=== PATIENT | male | born 1980 | race Hispanic/Latino ===

== ENCOUNTER 2018-09-19 20:04 | Inpatient (IN) | payer SELFPAY ==
[~2018-09-19 20:04] MED LIST: ISOVUE-370 76%-LOCM 1 ML ONE
[2018-09-19] MEDS ORDERED: Morphine 4 MG/ML VIAL ONE ×2 (20:41→21:30)
[2018-09-19] MEDS ORDERED: Ondansetron PF 4 MG/2 ML Vial ONE (20:42)
[2018-09-19 20:46] LABS: #Eosinphils 0.1 thou/uL (0.0-0.7); #Lymphocytes 2.4 thou/uL (1.20-3.40); #Neutrophils 5.6 thou/uL (1.40-6.50); %Basophils 0.5 % (0.0-1.0); %Eosinophils 1.2 % (0.0-10.0); %Lymphocytes 26.6 % (21.0-51.0); %Monocytes 10.4 % (0.0-10.0); %Neutrophils 61.3 % (42.0-75.0); Hemoglobin 13.9 g/dL (14.0-18.0); Mean Corpuscular HGB CONC 33.2 g/dL (32.0-36.0); Mean Corpuscular Hemoglobin 29.8 pg (27.0-31.0); Mean Corpuscular Volume 89.8 fL (78.0-98.0); Mean Platelet Volume 5.8 fL (7.4-10.4); Platelet Count 378 thou/uL (130-400); RBC Distribution Width 12.2 % (11.5-14.5); Red Blood Cell (RBC) Count 4.64 mill/uL (4.70-6.10); White Blood Cell (WBC) Count 9.2 thou/uL (4.8-10.8)
[2018-09-19 21:09] LABS: ALT (SGPT) 9 U/L (8-55); AST (SGOT) 13 U/L (5-34); Albumin 3.9 g/dL (3.5-5.0); Alkaline Phosphatase 62 U/L (40-150); Anion Gap 11 mmol/L (10-20); BUN (Urea Nitrogen) 9 mg/dL (8.9-20.6); Bilirubin, Total 0.5 mg/dL (0.2-1.2); Calc. Creatinine Clearance 0 mL/min (70-130); Calcium 9.5 mg/dL (7.8-10.44); Carbon Dioxide 31 mmol/L (22-29); Chloride 99 mmol/L (98-107); Estimated GFR-MDRD Greater than 90; Globulin 3.9 g/dL (2.4-3.5); Glucose 87 mg/dL (70-105); Lipase 53 U/L (8-78); Potassium 3.7 mmol/L (3.5-5.1); Protein, Total 7.8 g/dL (6.0-8.3); Sodium 137 mmol/L (136-145)
--- NOTE | 2018-09-19 21:11 | CT ---
CT of abdomen and pelvis: 09/19/2018 COMPARISON: None HISTORY: Abdominal pain, prior surgery TECHNIQUE: Axial CT imaging at 5 mm intervals from lung bases through pubic symphysis with IV contras t. Coronal reformatted imaging obtained. FINDINGS: The imaged lung bases are unremarkable. No free intraperitoneal air or fluid is seen. There are cholecystectomy clips present. There is a small amount of biliary gas within the left lobe of the liver and within the common bile duct, presumably associated with prior sphincterotomy or ERCP. Clinical correlation is essential. No focal liver lesion is identified. The spleen, adrenal gla nds, and kidneys are unremarkable. There is marked wall thickening of the gastric antrum and proximal duodenum with adjacent inflammator y fat stranding. The pancreas demonstrates no discrete abnormality. There is an ill-defined thick walled rim enhancing irregular fluid collection containing foci of gas, best seen on coronal image 50 and axial image 38, measuring approximately 2.8 x 4.1 x 3.2 cm. This fluid collection is intimately associated with the inferior aspect of the pancreatic head anteriorly and the thick walled abnormal distal stomach and proximal duodenum. Findings are most consistent with abscess. There is a questionable clot versus volume averaging associated with the inferior aspect of the left portal vein on axial image 24. Volume averaging is favored. No lymphadenopathy is apparent within the pelvis, the retroperitoneum, or the mesentery. No evidence for bowel obstruction or appendicitis. Review of the osseous structures demonstrates no worrisome findings. IMPRESSION: Findings suggesting abscess formation within the right upper quadrant, inferior to and ab utting a thick-walled gastric antrum and proximal duodenum. Findings are suspicious for perforated peptic ulcer disease. Air within the biliary tree noted. Volume averaging favored over clot within le ft portal vein. Findings called to Dr. Pinedo at 9:05 PM 09/19/2018.
[2018-09-19] MEDS ORDERED: metroNIDAZOLE 500 MG/100 ML BAG ONE (21:37)
[2018-09-19] MEDS ORDERED: MEROPENEM 1 GM/50 ML 1 GM in Premix Bag 1 BAG IVPB SCH (22:00)
[2018-09-19] MEDS ORDERED: Dextrose 5 %-0.45 % NaCl 1,000 ML IV SCH (22:30)
[2018-09-19 23:30] VITALS: BMI 26.6
[2018-09-19] MEDS ORDERED: Ondansetron ODT 4 MG TAB SL PRN (23:52)
[2018-09-19] MEDS ORDERED: Ondansetron PF 4 MG/2 ML Vial IVP PRN (23:52)
[2018-09-20] MEDS: D5 1/2 NS w/20 mEq KCL 1,000 ML IV SCH ×4 (00:07→18:17)
[2018-09-20] MEDS: Morphine 4 MG/ML VIAL SLOW IVP PRN ×3 (00:12→20:19)
[2018-09-20] MEDS ORDERED: metroNIDAZOLE 500 MG in Premix Bag 1 BAG IVPB SCH (06:00)
[2018-09-20] MEDS ORDERED: MEROPENEM 1 GM/50 ML 1 GM in Premix Bag 1 BAG IVPB SCH (06:00)
[2018-09-20] MEDS ORDERED: Acetaminophen 1,000 MG in Premix Bag 1 BAG IVPB PRN (09:55)
--- NOTE | 2018-09-20 10:16 | HP ---
CHIEF COMPLAINT: Epigastric pain. HISTORY OF PRESENT ILLNESS: The patient is a 38-year-old male, who underwent a laparoscopic cholecystectomy in April 16 for acute cholecystitis. Initially, his liver function tests were normal. Postprocedure, his LFTs bumped and bilirubin went up. He underwent an ERCP and they saw small filling defect, underwent sphincterotomy. Post ERCP, he developed pancreatitis. He remained in the hospital until May 01. Since discharge, he has been having persistent epigastric pain. It did not affect his eating. The pain persisted until this past couple of weeks when it has been increasing. He denies fever. He has had some nausea. No vomiting. The pain radiates to his back. He denies black or bloody stools. He denies weight loss, in fact he has gained weight, he went from 157 to 165. No change in bowel habits. PAST MEDICAL HISTORY: Right knee pain, hypertension. PAST SURGICAL HISTORY: Lap sonia and he had a repair of laceration of his right arm. MEDICATIONS: He is on a lisinopril/hydrochlorothiazide 10/12.5 pill daily. FAMILY HISTORY: Noncontributory. PHYSICAL EXAMINATION: VITAL SIGNS: Temperature 98.2, pulse 71, and blood pressure 113/70. GENERAL: He is a well-developed, well-nourished male, in no apparent distress. HEENT: No jaundice. LUNGS: Clear. HEART: Regular rate and rhythm. ABDOMEN: Soft. He is tender in the mid epigastrium and right upper quadrant. There is no distention. The incisions have healed well. EXTREMITIES: Unremarkable. LABORATORY DATA: His white count is 9.2, H and H are 13 and 41, and platelet count 328. Electrolytes are fine. Lipase is 53. Liver function tests normal. CT scan shows a 2.8 x 4.1 x 3.2 cm fluid collection at the head of the pancreas abutting the duodenum. ASSESSMENT: Probable pancreatic pseudocyst. PLAN: We will consult GI for possible endoscopy. We may need to repeat the CT with contrast, so that we can try and delineate whether or not this can be internally drained. Job ID: [id number]
[2018-09-20] MEDS ORDERED: Meropenem 1 GM in Sodium Chloride 0.9% 100 ML IVPB SCH (14:00)
[2018-09-20] MEDS: MEROPENEM 1 GM/50 ML 1 GM in Premix Bag 1 BAG IVPB SCH ×2 (14:24→22:30)
[2018-09-20] MEDS: Ondansetron PF 4 MG/2 ML Vial IVP PRN (15:52)
[2018-09-20] MEDS: Pantoprazole 40 MG VIAL IVP SCH ×2 (15:52→20:20)
[2018-09-21] MEDS: D5 1/2 NS w/20 mEq KCL 1,000 ML IV SCH ×3 (01:00→16:22)
--- NOTE | 2018-09-21 01:02 | CON ---
DATE OF CONSULTATION: 09/20/2018 CHIEF COMPLAINT: Abdominal pain. HISTORY OF PRESENT ILLNESS: Mr. Juliana Krishnan is a 38-year-old man who underwent laparoscopic cholecystectomy back in March of 2018. His liver tests bumped up the next day and he subsequently underwent ERCP with sphincterotomy and balloon sweep of the bile duct. He did have a 2-week hospitalization following that with pancreatitis. Since then, he has had some persistent epigastric burning pain that can radiate toward his back. This pain worsened over the last week and he came to the emergency room for further care. He has gained 8 pounds over the last several months. He has had no vomiting, but he did have some nausea yesterday. He has had no diarrhea, constipation, or blood in the stool. PAST MEDICAL HISTORY: Hypertension. He has had some chronic low back pain that has been associated with right knee or leg pain. He has had pancreatitis. PAST SURGICAL HISTORY: Laparoscopic cholecystectomy and ERCP with sphincterotomy by Dr. Ramirez. FAMILY HISTORY: Negative for GI malignancy. SOCIAL HISTORY: No alcohol, tobacco, or drugs. ALLERGIES: IV CONTRAST DYE. MEDICATIONS: Currently in hospital include pantoprazole and meropenem. At home, he has been on lisinopril with hydrochlorothiazide. REVIEW OF SYSTEMS: Negative x10 systems reviewed except as stated in the history of present illness. PHYSICAL EXAMINATION: VITAL SIGNS: Temperature 97.5, pulse 72, blood pressure 117/74. GENERAL: He is in no acute distress. Alert and oriented x3. He is [place] speaking primarily and an radiation safety officer assisted who is his nurse, who is fluent in [place]. HEENT: His eyes have no scleral icterus. Oropharynx is clear without lesions. No cervical or supraclavicular lymphadenopathy. LUNGS: Clear to auscultation bilaterally. HEART: Regular rate and rhythm without murmur. ABDOMEN: Soft. He has some focal tenderness in the epigastric region without guarding. Bowel sounds are present. EXTREMITIES: No lower extremity edema. Cranial nerves are grossly intact. LABORATORY DATA: White blood cell count 9.2, hemoglobin 13.9, platelets 378. Creatinine 0.89, bilirubin 0.5, AST 13, ALT 9, alkaline phosphatase 62, albumin 3.9, lipase 53. IMPRESSION: 1. Epigastric abdominal pain. 2. Abnormal CT scan showing thickening of the antrum and duodenum and fluid collection between this area of thickening and the pancreas. This fluid collection could be a pseudocyst from his prior pancreatitis. It does not appear to be causing obstruction. However, there could be some reactive inflammation of the stomach and duodenum related to that. He could have a peptic ulcer with associated abscess. It would be unlikely that a duodenal perforation related to sphincterotomy would present at this delayed date. His white blood cell count is normal and he is afebrile. Again, this would be more suggestive that the fluid collection is a pseudocyst rather than an abscess. RECOMMENDATIONS: 1. Proton pump inhibitor. 2. Antibiotics. 3. Plan EGD tomorrow to assess for peptic ulcer. 4. Further evaluation of the fluid collection depending on endoscopy findings. If the endoscopy is normal or negative, then imaging in the fluid collection with either a tagged white blood cell scan or MRI could be considered. Job ID: [id number]
[2018-09-21 05:46] LABS: #Basophils 0.1 thou/uL (0.0-0.2); #Eosinphils 0.1 thou/uL (0.0-0.7); #Lymphocytes 2.1 thou/uL (1.20-3.40); #Monocytes 0.7 thou/uL (0.11-0.59); #Neutrophils 2.5 thou/uL (1.40-6.50); %Basophils 0.9 % (0.0-1.0); %Lymphocytes 38.6 % (21.0-51.0); %Monocytes 12.9 % (0.0-10.0); %Neutrophils 45.7 % (42.0-75.0); Hemoglobin 12.8 g/dL (14.0-18.0); Mean Corpuscular HGB CONC 32.7 g/dL (32.0-36.0); Mean Corpuscular Hemoglobin 29.9 pg (27.0-31.0); Mean Corpuscular Volume 91.5 fL (78.0-98.0); Mean Platelet Volume 5.8 fL (7.4-10.4); Platelet Count 324 thou/uL (130-400); Red Blood Cell (RBC) Count 4.28 mill/uL (4.70-6.10); White Blood Cell (WBC) Count 5.5 thou/uL (4.8-10.8)
[2018-09-21] MEDS: Morphine 4 MG/ML VIAL SLOW IVP PRN ×2 (05:53→11:42)
[2018-09-21] MEDS: MEROPENEM 1 GM/50 ML 1 GM in Premix Bag 1 BAG IVPB SCH ×3 (05:53→21:06)
[2018-09-21 06:19] LABS: ALT (SGPT) Less than 7 U/L (8-55); AST (SGOT) 11 U/L (5-34); Albumin 3.1 g/dL (3.5-5.0); Alkaline Phosphatase 51 U/L (40-150); Bilirubin, Direct 0.2 mg/dL (0.1-0.3); Bilirubin, Total 0.4 mg/dL (0.2-1.2); Protein, Total 6.2 g/dL (6.0-8.3)
--- NOTE | 2018-09-21 08:20 | PRG ---
DATE OF SERVICE: 09/21/2018 SUBJECTIVE: The patient was very anxious about getting things done. GI saw him and plan EGD today. On review with the radiologist, they feel like this is a contained perforated duodenal ulcer, so we will find out more today. OBJECTIVE: VITAL SIGNS: On exam, his temperature is 97.6, pulse 60, and blood pressure 97/61. GENERAL: He is awake, alert. ABDOMEN: He has some mild tenderness in the midepigastrium. No distention. LABORATORY DATA: His H and H are 12 and 39, platelet count of 324, and white count of 5.5. ASSESSMENT: Possible pseudocyst versus contained peptic ulcer. PLAN: EGD today. Job ID: [id number]
[2018-09-21] MEDS: Pantoprazole 40 MG VIAL IVP SCH ×2 (08:40→21:06)
[2018-09-21] MEDS: Ondansetron PF 4 MG/2 ML Vial IVP PRN ×2 (12:49→21:06)
[2018-09-21] MEDS ORDERED: Promethazine HCl 25 MG/ML VIAL SLOW IVP PRN (15:31)
[2018-09-21] MEDS ORDERED: Ondansetron HCl/PF 4 MG/2 ML Vial IVP PRN (15:31)
[2018-09-21] MEDS ORDERED: Promethazine HCl 25 MG/ML VIAL IM PRN (15:31)
[2018-09-21] MEDS ORDERED: Lidocaine 1% PF 5 ML VIAL ONE (16:41)
[2018-09-21] MEDS ORDERED: PROPOFOL 200 MG/20 ML VIAL ONE (16:41)
--- NOTE | 2018-09-21 21:17 | OP ---
DATE OF PROCEDURE: 09/21/2018 PROCEDURE PERFORMED: Esophagogastroduodenoscopy with biopsy. PREOPERATIVE DIAGNOSIS: Epigastric pain and abnormal CT scan showing a possible abscess or fluid collection between the duodenum and the pancreas, and the antrum of the stomach. DESCRIPTION OF PROCEDURE: Informed consent was obtained from the patient. He was sedated with total intravenous anesthesia. The bite block was placed and the endoscope was advanced easily to the second portion of the duodenum and retroflexion was performed in the stomach. The esophagus was normal. The GE junction was normal. The stomach was normal including retroflexed views. The pylorus was normal. There was a 9-to 10-mm ulcer in the posterior wall of the bulb of the duodenum just past the pylorus. This had a puckered base that could be a fistula opening. The mucosa was heaped up somewhat around the edges and biopsies were obtained to rule out a neoplastic process causing the ulcer. The second portion of the duodenum was normal. There was good bile flow noted. The area around the sphincterotomy was not completely visualized, but the mucosa appeared normal. IMPRESSION: 1. A 9-to 10-mm ulcer in the posterior wall of the bulb of the duodenum with a puckered base that could be a fistula opening to an abscess described by CT. Biopsies were obtained from the ulcer edge. 2. Otherwise normal esophagogastroduodenoscopy. RECOMMENDATIONS: 1. Await histopathology. 2. Proton pump inhibitor twice daily. 3. Check H pylori stool antigen. Job ID: [id number]
[2018-09-22] MEDS: D5 1/2 NS w/20 mEq KCL 1,000 ML IV SCH ×4 (00:25→18:24)
[2018-09-22] MEDS: Morphine 4 MG/ML VIAL SLOW IVP PRN (05:37)
[2018-09-22] MEDS: MEROPENEM 1 GM/50 ML 1 GM in Premix Bag 1 BAG IVPB SCH ×3 (05:37→21:17)
[2018-09-22] MEDS: Pantoprazole 40 MG VIAL IVP SCH ×2 (08:56→21:17)
[2018-09-22] MEDS: Ondansetron PF 4 MG/2 ML Vial IVP PRN ×2 (12:19→21:17)
--- NOTE | 2018-09-22 15:34 | PRG ---
DATE OF SERVICE: 09/22/2018 SUBJECTIVE: Mr. Juliana Krishnan has decreased pain today. He is tolerating full liquids well. OBJECTIVE: VITAL SIGNS: Temperature 97.5, pulse 62, blood pressure 131/83. GENERAL: He is in no acute distress. Awake and alert. LUNGS: Clear to auscultation bilaterally. HEART: Regular rate and rhythm without murmur. ABDOMEN: Soft, nontender, nondistended. Bowel sounds are present. EXTREMITIES: No lower extremity edema. IMPRESSION: Ulcer in the posterior wall of the bulb of the duodenum, it appears to have at some point it had perforated and developed an abscess behind or even it is possible, they started with a pseudocyst that visualized to this backside of the duodenal wall. RECOMMENDATIONS: 1. Continue proton-pump inhibitor. 2. Continue antibiotics. 3. Depending on his response to the current treatment, further management will likely be determined based on the response of the abscess to the current treatment. Since this appears to be walled off and draining internally, I do not know that the surgery is required at this point. We will continue the current medications and consider reimaging with the timing of that to be determined over the next couple of days. Job ID: [id number]
[2018-09-23] MEDS: D5 1/2 NS w/20 mEq KCL 1,000 ML IV SCH ×3 (03:04→13:01)
[2018-09-23] MEDS: MEROPENEM 1 GM/50 ML 1 GM in Premix Bag 1 BAG IVPB SCH ×3 (05:09→21:08)
[2018-09-23] MEDS: Pantoprazole 40 MG VIAL IVP SCH ×2 (09:33→21:08)
--- NOTE | 2018-09-23 15:19 | PRG ---
DATE OF SERVICE: 09/23/2018 SUBJECTIVE: Mr. Juliana Krishnan has no abdominal pain. He has a little bit of nausea. He is tolerating full liquid diet. We will advance this today. OBJECTIVE: VITAL SIGNS: Temperature 98.3, pulse 60, blood pressure 130/80. GENERAL: He is in no acute distress, alert and oriented x3. LUNGS: Clear to auscultation bilaterally. HEART: Regular rate and rhythm without murmur. ABDOMEN: Soft, nontender, and nondistended. Bowel sounds are present. EXTREMITIES: No lower extremity edema. IMPRESSION: Ulcer on the posterior duodenal wall with a central apparent fistula opening to what appears to be an abscess by CT scan. RECOMMENDATIONS: 1. Proton pump inhibitor. 2. Advance his diet. 3. Continue antibiotics. 4. Duration of antibiotics will be the next decision. We will await General Surgery input regarding that. The abscess does appear to be at least potentially draining to the duodenum. It may be reasonable to obtain ID consultation tomorrow to assist with recommendations regarding duration of antibiotics and timing of followup CT scan to assess response of the abscess to the antibiotics. Job ID: [id number]
[2018-09-24] MEDS: MEROPENEM 1 GM/50 ML 1 GM in Premix Bag 1 BAG IVPB SCH ×3 (05:38→21:34)
[2018-09-24] MEDS: D5 1/2 NS w/20 mEq KCL 1,000 ML IV SCH ×3 (05:38→16:41)
[2018-09-24] MEDS: Pantoprazole 40 MG VIAL IVP SCH ×2 (08:43→21:34)
--- NOTE | 2018-09-24 11:27 | PRG ---
DATE OF SERVICE: SUBJECTIVE: The patient states that he is feeling better. He really has very little pain. He is tolerating liquids well. OBJECTIVE: VITAL SIGNS: Temperature is 97.8, pulse 55, and blood pressure 117/78. GENERAL: He looks good. ABDOMEN: His abdomen is soft, nondistended, and nontender. ASSESSMENT: He had an esophagogastroduodenoscopy showing a perforated duodenal ulcer. PLAN: Upper GI to define this. Job ID: [id number]
[2018-09-24] MEDS: Ondansetron PF 4 MG/2 ML Vial IVP PRN (12:18)
[2018-09-24] MEDS ORDERED: MD-Gastroview 120 ML BOT ONE (13:50)
--- NOTE | 2018-09-24 14:56 | RAD ---
SMALL BOWEL FOLLOW-THROUGH: HISTORY: Contained perforated duodenal ulcer. TECHNIQUE/FINDINGS: 240 mL of Gastrografin was given orally. Overhead images obtained. Modern Languages Professor radiograph demonstrates surgical clips seen in the gallbladder fossa. Radiopaque contrast passed from the stomach into the small bowel without evidence of leakage or obstr uction. Contrast flowed into the colon. No evidence of bowel obstruction seen. IMPRESSION: Normal Gastrografin small bowel follow-through. Transcribed Date/Time: 09/24/2018 3:02 PM
[2018-09-25] MEDS: MEROPENEM 1 GM/50 ML 1 GM in Premix Bag 1 BAG IVPB SCH (05:32)
[2018-09-25] MEDS: D5 1/2 NS w/20 mEq KCL 1,000 ML IV SCH (05:32)
[2018-09-25] MEDS: Pantoprazole 40 MG VIAL IVP SCH (08:43)
[2018-09-25] MEDS: Ondansetron PF 4 MG/2 ML Vial IVP PRN (10:02)
--- NOTE | 2018-09-25 10:08 | PRG ---
DATE OF SERVICE: 09/24/2018 SUBJECTIVE: Mr. Krishnan is eating. He has no fever. He did have a Gastrografin upper GI today. OBJECTIVE: VITAL SIGNS: Temperature 98, pulse 60, blood pressure 110/74. GENERAL: He is resting comfortably in bed. ABDOMEN: Soft and nontender. LABORATORY DATA: None. Gastrografin upper GI shows no overt leak. ASSESSMENT: 1. Ulcer at the duodenum, no where near the ampulla. 2. Fluid collection around the superior part of the duodenum and pancreas. It is unclear if this is a pseudocyst that is somewhere eroded into his duodenum or if this was a primary duodenal lesion. He did not have any overt evidence of ulcers on an ERCP on previous admission at the end of last year. We will talk with Dr. Jefferson about further plans. Job ID: [id number]
[2018-09-25 11:57] VITALS: BP 129/84; TEMP 97.3
--- NOTE | 2018-09-26 01:41 | DIS ---
DATE OF ADMISSION: 09/19/2018 DATE OF DISCHARGE: 09/25/2018 DISCHARGE DIAGNOSIS: Duodenal ulcer with contained perforation. PROCEDURES DURING ADMISSION: EGD, small-bowel follow-through, and CT scan of abdomen and pelvis. HOSPITAL COURSE: The patient was admitted given IV antibiotics and Protonix. After CT showed a perforated duodenal ulcer, GI was consulted, treated with PPIs b.i.d. They did an endoscopy that showed this was not a complication of his previous surgery. It was on the opposite wall that it appeared to be an ulceration. A small-bowel follow-through showed no extravasation. He is feeling fine. He is afebrile. Normal white count. Pain has gone. He is tolerating diet. He was discharged to home on b.i.d. Protonix. Follow up in 2 weeks. Job ID: [id number]
== END 2018-09-25 12:33 | disposition home or self-care (01) | DRG 380 ==
LOC: ERS 20:04 → SURG A 21:30
PROVIDERS: ADMIT Surgery; ATTEND Surgery
PROC: 0DB98ZX Excision of Duodenum, Via Natural or Artificial Opening Endoscopic, Diagnostic (ICD-10-PCS; principal; 2018-09-21)
DX: K26.5 Chronic or unspecified duodenal ulcer with perforation (principal); K65.1 Peritoneal abscess; I10 Essential (primary) hypertension; Z79.899 Other long term (current) drug therapy; Z90.49 Acquired absence of other specified parts of digestive tract
CPT/HCPCS: 36415; 74177; 74250; 80053; 80076; 83690; 84484; 85025; 87338; 88305; 93005; 96361; 96365; 96368; 96375; 96376; C9113; J0131; J2185; J2270; J2405; Q9966